=== PATIENT | female | born 1945 | race Caucasian/White ===

== ENCOUNTER 2016-12-24 00:19 | Day surgery (SDC) | payer MEDICARE, OTHER ==
[~2016-12-24] VITALS: Ht 165.1 cm; Wt 68.0 kg
[~2016-12-24 00:19] MED LIST: IPRA15SP NS; KRIL1CAP PO
[2016-12-24] MEDS ORDERED: fentaNYL-PF 50 mCg/mL 2 mL Inj IVPUSH PRN (06:00)
[2016-12-24] MEDS ORDERED: Sodium Chloride LOK Flush 10 mL Syringe IV PRN (06:00)
[2016-12-24] MEDS ORDERED: 0.9% Sodium Chloride 1,000 ML IV SCH (06:00)
[2016-12-24 11:18] VITALS: BP 117/69; PULSE 57; RESP 16; O2SAT 100
[2016-12-24] MEDS ORDERED: GLUC100016 PO (11:18)
[2016-12-24 12:29] VITALS: BP 99/59; PULSE 56; RESP 10; O2SAT 98
[2016-12-24 12:38] VITALS: BP 104/58; PULSE 54; RESP 11; O2SAT 97
[2016-12-24 12:49] VITALS: BP 100/65; PULSE 56; RESP 12; O2SAT 100
--- NOTE | 2016-12-24 13:17 | ENDO ---
[address] [address] ENDOSCOPY PROCEDURE PATIENT: AR LEWIS : 1945 MR#: [id number] ADMIT: 12/24/2016 JOB ID: [id number] DATE: 12/24/2016 PRIMARY PROVIDER: Austin Alvarado M.D. PROCEDURE: Colonoscopy with hot snare polypectomy and cold snare polypectomy. INDICATIONS: A 71-year-old female with a family history of colon cancer reporting for screening. EQUIPMENT: PCF H 190 L. SEDATION: 1. 7 mg Versed. 2. 125 mcg fentanyl. COMPLICATIONS: None identified. BOWEL PREPARATION: Very adequate. PROCEDURAL INFORMATION: After the risks and benefits were explained, written and verbal informed consent was obtained. The patient was brought into the endoscopy suite and placed into the left lateral decubitus position. Sedation was achieved as above. A digital rectal examination was accomplished. No significant pathology appreciated. The scope was introduced into the rectum and advanced to the cecum as identified by the appendiceal orifice and ileocecal valve. The scope was slowly withdrawn to carefully examine the mucosa for any defects or lesions. Retroflexed views were avoided in the rectum. Multiple direct views were made through the dentate line for exclusion of pathology. The colon was decompressed. The scope removed from the patient who tolerated the procedure well. FINDINGS: Challenging navigation through the distal sigmoid. There was an approximately 1 cm sessile polyp in the ascending colon removed with hot snare. A slightly smaller polyp in the right colon was additionally removed with a hot snare. There was then a cold snare diminutive polyp in the rectum. All three of these were submitted as "colon polyps." No other significant pathology throughout. ENDOSCOPIC DIAGNOSES: Multiple colon polyps. RECOMMENDATIONS: 1. Await histopathology. 2. Repeat colonoscopy in three years if there are any adenomatous features confirmed here. Otherwise a five year followup would be appropriate.
--- NOTE | 2016-12-26 17:00 | PATH ---
SURGICAL PATHOLOGY Attending Physician:Lewis Olvera CASE STATUS: Signed Out PATIENT NAME: AR LEWIS PID: [id number] : 1945 DATE COLLECTED:12/24/2016 20:56 SPECIMEN: Colon, Polyp CLINICAL HISTORY: 1). 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 ICD10 D12.6 GROSS DESCRIPTION: Received in formalin, labeled with the patient's name and "colon" are three fragments of reid soft tissue ranging from 0.3 x 0.2 x 0.1 cm to 1.0 x 0.3 x 0.2 cm. The fragments are totally submitted in one cassette. [id number]) MICRO DESCRIPTION: See diagnosis. ICD-9 CODES: CPT CODES: 1: 97488 Electronically Signed Out Corona Ramirez MD, Ph.D. [facility] Pathology [facility] [address], [place] [address] Technical component performed at [facility], [facility] [address], [place], [address]
== END 2016-12-24 23:59 | disposition home or self-care (01) ==
LOC: END 00:19
PROVIDERS: ATTEND Internal Medicine Gastroenterology
DX: Z12.11 Encounter for screening for malignant neoplasm of colon (principal); Z80.0 Family history of malignant neoplasm of digestive organs; D12.2 Benign neoplasm of ascending colon; D12.8 Benign neoplasm of rectum; M19.90 Unspecified osteoarthritis, unspecified site; Z86.69 Personal history of other diseases of the nervous system and sense organs
CPT/HCPCS: 45385; 99153; G0500; J2250; J3010; J7030